=== PATIENT | female | born 1965 | race Caucasian/White ===

== ENCOUNTER 2016-12-04 09:18 | Emergency (ER) | payer OTHER, MEDICARE ==
[~2016-12-04] VITALS: Ht 172.7 cm; Wt 111.6 kg
[~2016-12-04 09:18] MED LIST: BACTRIM DS TAB1 EACH PO; MACROBID 100 M100 MG PO; METHADONE H5 MG/5 ML PO; OXYCODONE HCL5 M1 PO; ZOFRAN ODT4 M1 SL
[2016-12-04 10:22] LABS: ABSOLUTE BASOPHIL COUNT 0 /CUMM (0.0-0.2); ABSOLUTE EOSINOPHIL COUNT 0.1 /CUMM (0.0-0.7); ABSOLUTE GRANULOCYTE CT 1.4 /CUMM (1.4-6.5); ABSOLUTE LYMPH COUNT 0.9 /CUMM (1.2-3.4); ABSOLUTE MONOCYTE COUNT 0.3 /CUMM (0.10-0.60); BASOPHIL % 0.7 % (0.0-2.0); EOSINOPHIL % 2.6 % (0-5); GRANULOCYTE % 53.9 % (42.2-75.2); HEMATOCRIT 40.5 % (37-47); MEAN CORPUSCULAR HGB 30.4 PG (27.0-31.0); MEAN CORPUSCULAR HGB CONC 34.3 G/DL (33.0-37.0); MEAN CORPUSCULAR VOLUME 88.6 FL (81.0-99.0); RBC DISTRIBUTION WIDTH 16.1 % (11.5-14.5); RED BLOOD CELL CT 4.58 /CUMM (4.20-5.40); WHITE BLOOD CELL COUNT 2.6 /CUMM (4.8-10.8)
[2016-12-04 10:29] LABS: MEAN PLATELET VOLUME 7.8 FL (7.4-10.4)
[2016-12-04 10:48] LABS: PLATELET COUNT 41 /CUMM (130-400)
--- NOTE | 2016-12-04 10:51 | ED GENERAL ADULT ---
History of Present Illness General Chief Complaint: Abdominal Pain/Flank Pain Stated Complaint: ABD PAIN, STD TESTING Source: patient Exam Limitations: no limitations Allergies Coded Allergies: NO KNOWN ALLERGIES (08/25/16) Triage Note: 51 Y/O FEMALE C/O SWELLING TO BILATERAL LEGS, DARK RASH TO RIGHT LOWER EXTREMITY. ALSO C/O INTERMITTENT ABDOMINAL PAINS. STATES SHE HAD INTERCOURSE WITH MAN WHO TOLD HER HE HAS TRICHOMONAS. PT C/O "DARK URINE" WELL. +NAUSEA AND "DRY HEAVING". AFEBRILE Triage Nurses Notes Reviewed? yes HPI: 51 year old woman seen for evaluation of worsening abdominal pain. She has multiple previous ED evaluations for abdominal pain with a reported history of pancreatitis. She has not followed up with a electrical engineering drafting officer as an outpatient as she has had diffculty obtaining insurance coverage. She reports epigastric admoninal pain radiating around her right side to her back with associated nausea and dry heaves. She states she has no appetite but admits she ate a double cheeseburger for breakfast and was able to keep that down. Additionally she admits to having sexual intercourse with a man last week whom reportedly "has trichomonas" and reports associated vaginal itching and discomfort. 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 (JAME ESPINOZA,ANYI) Vital Signs & Intake/Output Vital Signs & Intake/Output Vital Signs Date Time Temp Pulse Resp B/P Pulse O2 O2 Flow FiO2 Ox Delivery Rate 12/04 1310 99.0 80 20 159/78 100 Room Air 12/04 1229 99.0 80 137/67 12/04 1046 97.0 70 20 150/66 98 Room Air 12/04 1027 96 Room Air Room Air 12/04 0952 98.0 100 22 175/91 94 Room Air 12/04 0922 98.0 83 18 167/87 99 Room Air Reconcile Medications Dicyclomine Hydrochloride (Bentyl) 10 MG CAPSULE 1 CAP PO TID ABDOMINAL DISCOMFORT Metronidazole (Flagyl) 500 MG TABLET 1 TAB PO BID INFECTION (TENA ESPINOZA,SUZY) Past History Travel History Traveled to [place] past 21 day No Medical History Any Pertinent Medical History? see below for history Neurological: NONE EENT: NONE Cardiovascular: PVD, CONGENITAL HEART DISEASE Respiratory: NONE Gastrointestinal: pancreatitis Hepatic: cirrhosis, hepatitis C Renal: NONE Musculoskeletal: NONE Psychiatric: NONE Endocrine: NONE Blood Disorders: NONE Cancer(s): NONE PRINTING PRESS MACHINE OPERATOR/Reproductive: NONE Surgical History Surgical History: non-contributory Psychosocial History What is your primary language Ethiopian Tobacco Use: Current Daily Use Daily Tobacco Use Amount/Type: => 5 Cigarettes daily Family History Hx Contributory? No (ANYI KILGORE MD) Review of Systems Review of Systems Constitutional: Reports: see HPI. (ANYI KILGORE MD) Review of Systems EENTM: Reports: no symptoms. Respiratory: Reports: no symptoms. Cardiovascular: Reports: no symptoms. GI: Reports: see HPI, abdominal pain, nausea. Genitourinary: Reports: no symptoms. Musculoskeletal: Reports: no symptoms. Skin: Reports: no symptoms. Neurological/Psychological: Reports: no symptoms. Hematologic/Endocrine: Reports: no symptoms. Immunologic/Allergic: Reports: no symptoms. All Other Systems: Reviewed and Negative (SUZY MADSEN MD) Physical Exam Physical Exam General Appearance: well developed/nourished, no apparent distress, alert, awake , anxious, obese Comments: General - well developed, well nourished obese middle aged woman in mild distress HEENT - NCAT, PERRL, EOMI, anicteric sclera, moist mucous membranes CVS - S1, S2 w/o m/g/r Resp - CTA bilaterally w/o wheezing/rhonchi/crackles GI - Soft, diffuse abdominal tenderness mostly in LUQ/RUQ without guarding or rigidity, nondistended, bowel sounds intact, right sided CVA tenderness Neuro - Awake and alert, CN II - XII grossly intact Ext - normal pulses, 3+ bilateral lower extremity swelling with chronic skins changes and overlying scaling, no deformity Core Measures ACS in differential dx? No CVA/TIA Diagnosis: No Severe Sepsis Present: No Septic Shock Present: No (ANYI KILGORE MD) Progress Differential Diagnoses I considered the following diagnoses in my evaluation of the patient: renal colic, biliary colic, pancreatitis, cholecystitis, gastroenteritis, STD, venous insufficiency Plan of Care: Orders Procedure Date/time Status Nothing by Mouth 12/04 L Active Add-on Test (ER Only) 12/04 1139 Active CULTURE,URINE 12/04 1050 Active AMMONIA 12/04 1050 Complete EKG 12/04 1050 Active LIPASE 12/04 1015 Complete URINALYSIS 12/04 1011 Complete COMPREHENSIVE METABOLIC PANEL 12/04 1007 Complete CBC WITHOUT DIFFERENTIAL 12/04 1007 Complete Laboratory Tests 12/04/16 1200: Ammonia 60 H 12/04/16 1015: Anion Gap 10, Estimated GFR > 60, BUN/Creatinine Ratio 14.0, Glucose 77, Calcium 8.8, Total Bilirubin 2.1 H, AST 33, ALT 27, Alkaline Phosphatase 174 H, Total Protein 6.9, Albumin 3.3 L, Globulin 3.6, Albumin/Globulin Ratio 0.9 L, Lipase 248, CBC w Diff NO MAN DIFF REQ, RBC 4.58, MCV 88.6, MCH 30.4, RDW 16.1 H, MPV 7.8, Gran % 53.9, Lymphocytes % 32.7, Monocytes % 10.1 H, Eosinophils % 2.6, Basophils % 0.7, Absolute Granulocytes 1.4, Absolute Lymphocytes 0.9 L, Absolute Monocytes 0.3, Absolute Eosinophils 0.1, Absolute Basophils 0, PUBS MCHC 34.3 12/04/16 1010: Urinalysis LIGHT H, Urine Color YEL, Urine Clarity HAZY H, Urine pH 6.0, Ur Specific [place] 1.025, Urine Protein NEG, Urine Ketones NEG, Urine Nitrite NEG, Urine Bilirubin NEG, Urine Urobilinogen 1.0, Ur Leukocyte Esterase TRACE H, Ur Microscopic SEDIMENT EXAMINED, Urine RBC 1-3, Urine WBC 5-10 H, Ur Epithelial Cells MOD H, Urine Mucus MOD H, Urine Hemoglobin SMALL H, Urine Glucose NEG Microbiology 12/04 1010 URINE ROUT: Urine Culture - RECD Initial ED EKG: normal axis, normal p-waves, normal QRS complex, normal sinus rhythm, QTc 480 Comments: Patient has an extensive history of multiple medical problems without any reported outpatient evaluation. She reports that her insurance issues should be soon over and shes now "on the list" for medicaid. She was instructed to establish care with a primary care provider and to follow up with a electrical engineering drafting officer for her persistent abdominal complaints. Complete blood count demonstrated a WBC 2.6. Comprehensive metabolic panel was remarkable for a total bilirubin of 2.1 with normal AST/ALT and alkaline phos 174. Ammonia was 60 without any baseline available. UA was remarkable for presence of trichonomanas. Patient is to be discharged to home with a prescription for Flagyl and Bentyl. (ANYI KILGORE MD) Departure Departure Disposition: HOME OR SELF CARE Condition: Stable Clinical Impression Primary Impression: Abdominal pain Qualifiers: Abdominal location: generalized Qualified Code: R10.84 - Generalized abdominal pain Referrals: PATIENT HAS NO PRIMARY CARE DR (PCP/Family) Additional Instructions: Establish care with a primary care provider and follow up with a electrical engineering drafting officer after discharge for your abdominal complaints and elevated ammonia level. Take flagyl and bentyl and directed. Departure Forms: Customer Survey General Discharge Information (ANYI KILGORE MD) Departure Prescriptions: Current Visit Scripts Metronidazole (Flagyl) 1 TAB PO BID #14 TAB Dicyclomine Hydrochloride (Bentyl) 1 CAP PO TID #45 CAP Resident Co-Sign Statement Statement: ED Attending supervision documentation- x I saw and evaluated the patient. I have also reviewed all the pertinent lab results and diagnostic results. I agree with the findings and the plan of care as documented in the Resident's documentation. [] I have reviewed the ED Record and agree with the Resident's documentation. [] Additions or exceptions (if any) to the Resident's note and plan are summarized below: [] (TENA ESPINOZA,SUZY) Critical Care Note Critical Care Note Critical Care Time: non-applicable (ANYI KILGORE MD)
[2016-12-04 13:10] VITALS: BP 159/78
[2016-12-04] MEDS ORDERED: BENTYL10 M1 PO (13:12)
[2016-12-04] MEDS ORDERED: FLAGYL500 MG PO (13:12)
== END 2016-12-04 13:26 ==
LOC: ERH 09:18
PROVIDERS: Internal Medicine Interventional Cardiology
DX: R10.11 Right upper quadrant pain (principal); R10.12 Left upper quadrant pain; L29.2 Pruritus vulvae
CPT/HCPCS: 81001; 87086; 93005; 93010; 96374; 96375; J2550